=== PATIENT | male | born 1940 | race Caucasian/White ===

== ENCOUNTER 2018-01-22 04:06 | Emergency (ER) | payer MEDICARE ==
--- NOTE | 2018-01-22 06:03 | EDM.PDOC ---
<OfficerMichael - Last Filed: 01/22/18 06:04> ED HPI GENERAL MEDICAL PROBLEM - General Chief Complaint: Chest Pain Stated Complaint: CHEST PAIN Time Seen by Provider: 01/22/18 04:15 Source of Information: Reports: Patient, RN Notes Reviewed History Limitations: Reports: No Limitations - History of Present Illness INITIAL COMMENTS - FREE TEXT/NARRATIVE: 77-year-old gentleman presents emergency department today complaint of chest pain, states the chest pain started last night he was able to go to sleep chest pain again this morning about 4:00 when he was up going to the bathroom decided to come to the emergency department to have it evaluated he is chest pain-free at this time he did take aspirin prior to arrival to the emergency department no nausea no shortness of breath no diaphoresis no cardiac history Chest Pain Score (Numeric/FACES): 5 - Related Data Allergies Allergy/AdvReac Type Severity Reaction Status Date / Time No Known Allergies Allergy Verified 01/22/18 04:16 Home Meds: Home Meds Aspirin [Jaylin Chewable Aspirin] 81 mg PO DAILY 03/11/16 [History] Lisinopril 40 mg PO DAILY 03/11/16 [History] atorvaSTATin [Lipitor] 80 mg PO DAILY 03/11/16 [History] Furosemide [Lasix] 20 mg PO DAILY 01/22/18 [History] Sulfamethoxazole/Trimethoprim [Bactrim Ds Tablet] 1 tab PO DAILY 01/22/18 [ History] Tamsulosin [Flomax] 0.4 mg PO DAILY 01/22/18 [History] amLODIPine Besylate [Amlodipine Besylate] 5 mg PO DAILY 01/22/18 [History] Past Medical History HEENT History: Reports: Hard of Hearing Cardiovascular History: Reports: High Cholesterol, Hypertension Genitourinary History: Reports: Other (See Below) 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 Oncologic (Cancer) History: Reports: Basal Cell Carcinoma - Past Surgical History GI Surgical History: Reports: Colonoscopy Neurological Surgical History: Reports: Other (See Below) Social & Family History - Tobacco Use Smoking Status *Q: Former Smoker Used Tobacco, but Quit: Yes Month/Year Tobacco Last Used: 12/1976 - Caffeine Use Caffeine Use: Reports: Coffee - Recreational Drug Use Recreational Drug Use: No ED ROS GENERAL - Review of Systems Review Of Systems: See Below Constitutional: Reports: No Symptoms HEENT: Reports: No Symptoms Respiratory: Reports: No Symptoms Cardiovascular: Reports: Chest Pain GI/Abdominal: Reports: No Symptoms : Reports: No Symptoms Musculoskeletal: Reports: No Symptoms Skin: Reports: No Symptoms Neurological: Reports: No Symptoms ED EXAM, GENERAL - Physical Exam Exam: See Below Free Text/Narrative:: General: Male, not in any distress, alert and oriented x3 HEENT: head is atraumatic normocephalic, eyes pupils equal round reactive to light, sclera clear no conjunctivitis appreciated. Ears tympanic membranes clear and pelayo landmarks and light reflex are present bilaterally canals are clear. Nose no septal deviation, nares are clear, no blood present. Mouth mucosa is moist and pink no erythema or exudate noted in soft palate, tongue is midline uvula is midline, dentition is intact. Neck: Supple no thyromegaly no tracheal deviation. Nodes: Cervical nodes subclavicular nodes nontender no palpable lymphadenopathy noted. Lungs: clear to auscultation bilaterally with symmetrical respirations, no adventitious noise appreciated. CV: Regular rate and rhythm S1 and S2 appreciated no murmurs rubs or gallops noted. Abdomen: Soft, nontender, no palpable masses or organomegaly appreciated, no distention no guarding bowel sounds are present, . Neuro: Cranial nerves II through XII grossly intact Skin: Warm and dry, intact Extremities: No lower extremity edema appreciated, pedal pulse is +2. Course - Vital Signs Last Recorded V/S: Last Vital Signs Temp 36.0 C 01/22/18 04:28 Pulse 88 01/22/18 08:32 Resp 13 01/22/18 08:32 BP 185/81 H 01/22/18 08:32 Pulse Ox 97 01/22/18 08:32 - Orders/Labs/Meds Orders: Active Orders 24 hr Category Date Time Status Cardiac Monitoring [RC] .As Directed Care 01/22/18 04:32 Active EKG Documentation Completion [RC] ASDIRECTED Care 01/22/18 04:32 Active Chest 2V [CR] Stat Exams 01/22/18 04:32 Taken Lactated Ringers [Ringers, Lactated] 1,000 ml Med 01/22/18 08:19 Active IV BOLUS EKG 12 Lead [EK] Stat Ther 01/22/18 04:32 Ordered Medication Orders Lactated Ringer's (Ringers, Lactated) 1,000 mls @ 1,000 mls/hr IV BOLUS ONE Stop: 01/22/18 09:18 Labs: Laboratory Tests 01/22/18 01/22/18 01/22/18 Range/Units 04:15 04:15 06:35 WBC 6.1 (4.5-11.0) K/uL RBC 4.49 (4.30-5.90) M/uL Hgb 13.3 (12.0-15.0) g/dL Hct 40.0 (40.0-54.0) % MCV 89 (80-98) fL MCH 30 (27-31) pg MCHC 33 (32-36) % Plt Count 269 (150-400) K/uL Neut % (Auto) 68 H (36-66) % Lymph % (Auto) 18 L (24-44) % Gates % (Auto) 12 H (2-6) % Eos % (Auto) 2 (2-4) % Baso % (Auto) 1 (0-1) % Sodium 141 (140-148) mmol/L Potassium 4.1 (3.6-5.2) mmol/L Chloride 106 (100-108) mmol/L Carbon Dioxide 27 (21-32) mmol/L Anion Gap 8.0 (5.0-14.0) mmol/L BUN 23 H (7-18) mg/dL Creatinine 1.4 H (0.8-1.3) mg/dL Est Cr Clr Drug Dosing 47.73 mL/min Estimated GFR (MDRD) 49 L (>60) Glucose 137 H (74-106) mg/dL Calcium 9.1 (8.5-10.1) mg/dL Total Bilirubin 0.4 (0.2-1.0) mg/dL AST 26 (15-37) U/L ALT 38 (12-78) U/L Alkaline Phosphatase 114 (46-116) U/L CK-MB (CK-2) 1.7 (0-3.6) mg/mL Troponin I < 0.017 0.025 (0.000-0.056) ng/mL Total Protein 6.3 L (6.4-8.2) g/dL Albumin 3.4 (3.4-5.0) g/dL Globulin 2.9 (2.3-3.5) g/dL Albumin/Globulin Ratio 1.2 (1.2-2.2) 01/22/18 Range/Units 08:28 WBC (4.5-11.0) K/uL RBC (4.30-5.90) M/uL Hgb (12.0-15.0) g/dL Hct (40.0-54.0) % MCV (80-98) fL MCH (27-31) pg MCHC (32-36) % Plt Count (150-400) K/uL Neut % (Auto) (36-66) % Lymph % (Auto) (24-44) % Gates % (Auto) (2-6) % Eos % (Auto) (2-4) % Baso % (Auto) (0-1) % Sodium (140-148) mmol/L Potassium (3.6-5.2) mmol/L Chloride (100-108) mmol/L Carbon Dioxide (21-32) mmol/L Anion Gap (5.0-14.0) mmol/L BUN (7-18) mg/dL Creatinine (0.8-1.3) mg/dL Est Cr Clr Drug Dosing mL/min Estimated GFR (MDRD) (>60) Glucose (74-106) mg/dL Calcium (8.5-10.1) mg/dL Total Bilirubin (0.2-1.0) mg/dL AST (15-37) U/L ALT (12-78) U/L Alkaline Phosphatase (46-116) U/L CK-MB (CK-2) (0-3.6) mg/mL Troponin I 0.021 (0.000-0.056) ng/mL Total Protein (6.4-8.2) g/dL Albumin (3.4-5.0) g/dL Globulin (2.3-3.5) g/dL Albumin/Globulin Ratio (1.2-2.2) Meds: Medications Generic Name Dose Route Start Last Admin Trade Name Freq PRN Reason Stop Dose Admin Lactated Ringer's 1,000 mls @ 1,000 mls/hr 01/22/18 08:19 Ringers, Lactated IV 01/22/18 09:18 BOLUS ONE - Re-Assessments/Exams Free Text/Narrative Re-Assessment/Exam: 01/22/18 06:06 heart score of 4 Departure - Departure Disposition: Home, Self-Care 01 Clinical Impression: Atypical chest pain Referrals: PCP,None [Primary Care Provider] - Forms: ED Department Discharge Additional Instructions: Take your morning meds as soon as you get home. F/U for recheck with your doctors back home in [facility]. Take our copy of your EKG along to your appt. Return here if worse. - My Orders Last 24 Hours: My Active Orders 01/22/18 08:19 Lactated Ringers [Ringers, Lactated] 1,000 ml IV BOLUS - Assessment/Plan Last 24 Hours: My Active Orders 01/22/18 08:19 Lactated Ringers [Ringers, Lactated] 1,000 ml IV BOLUS <Gallito Barnett - Last Filed: 01/22/18 09:17> EKG INTERPRETATION EKG Date: 01/22/18 Time: 04:10 Rhythm: NSR Rate (Beats/Min): 69 [place]: Normal P-Wave: Present QRS: LBBB (new since 10/29) ST-T: Normal QT: Normal Comparison: Change From Previous EKG Departure - Departure Time of Disposition: 20:00 Condition: Good
[2018-01-22] MEDS ORDERED: Lactated Ringers 1,000 ML IV ONE (08:19)
[2018-01-22 08:33] VITALS: BP 185/81
--- NOTE | 2018-01-22 10:17 | CR ---
Chest 2V INDICATION: Chest Pain COMPARISON: None FINDINGS: Two views. Heart size normal. Lungs are clear. No infiltrate or pleural effusion. No sig ns of pulmonary edema.
== END 2018-01-22 09:35 | disposition home or self-care (01) ==
LOC: JP.ED 04:06
DX: R07.89 Other chest pain (principal); I10 Essential (primary) hypertension; E78.00 Pure hypercholesterolemia, unspecified; Z87.891 Personal history of nicotine dependence; Z79.899 Other long term (current) drug therapy; Z79.82 Long term (current) use of aspirin
CPT/HCPCS: 36415; 71046; 71046-26; 80053; 82553; 84484; 85025; 93005; 99285-25